=== PATIENT | male | born 1965 | race Caucasian/White ===

== ENCOUNTER 2016-11-04 15:13 | Emergency (ER) | payer SELFPAY ==
[~2016-11-04] VITALS: Ht 188 cm; Wt 86.2 kg
[2016-11-04 15:33] VITALS: BP 138/73
== END 2016-11-04 16:03 | disposition home or self-care (01) ==
LOC: ER 15:18
DX: S80.862A Insect bite (nonvenomous), left lower leg, initial encounter (principal); L02.416 Cutaneous abscess of left lower limb; F41.9 Anxiety disorder, unspecified; W57.XXXA Bitten or stung by nonvenomous insect and other nonvenomous arthropods, initial encounter; Y92.89 Other specified places as the place of occurrence of the external cause; Y93.89 Activity, other specified; Y99.8 Other external cause status
CPT/HCPCS: 99283; A4606; Z7610

== ENCOUNTER 2020-07-17 10:34 | Emergency (ER) | payer OTHER ==
[~2020-07-17] VITALS: Ht 188 cm; Wt 90.7 kg
[2020-07-17] MEDS ORDERED: IV NS 0.9% 1,000 ML BAG IV ONE (11:00)
[2020-07-17 11:11] LABS: BASOPHILS % (AUTO) 0.5 % (0.0-2.0); EOSINOPHILS % (AUTO) 0.4 % (0.0-6.0); HEMATOCRIT 45 % (39-51); HEMOGLOBIN 15.4 g/dL (13.5-17.5); LYMPHOCYTES # (AUTO) 0.8 /CMM (0.8-4.8); LYMPHOCYTES % (AUTO) 9.6 % (20.0-44.0); MEAN CORPUSCULAR HGB CONC 35 g/dl (31.0-36.0); MEAN CORPUSCULAR VOLUME 87 fL (80-96); MONOCYTES # (AUTO) 0.5 /CMM (0.1-1.30); MONOCYTES % (AUTO) 5.9 % (2.0-12.0); NEUTROPHILS # (AUTO) 7.2 /CMM (1.8-8.9); NEUTROPHILS % (AUTO) 83.6 % (43.0-81.0); PLATELET COUNT (AUTO) 284 /CMM (150-450); RED BLOOD CELL COUNT(AUTO) 5.11 MIL/uL (4.5-6.0); WHITE BLOOD COUNT (AUTO) 8.6 K/uL (4.3-11.0)
[2020-07-17 11:19] LABS: CALCIUM, SERUM 8.9 mg/dL (8.5-10.1); POTASSIUM 3.9 mmol/L (3.5-5.1)
--- NOTE | 2020-07-17 11:24 | NUR ---
BIBS FROM HOME. A/O X4. NO SOB OR ANY S/S OF RESPIRATORY DISTRESS. COMPLAINING OF FATIGUE AND RAPID HEART RATE BUT NO CHEST PAIN. AMBULATORY. PLACED ON MONITOR, NOTED HR OF [address] MD AT BEDSIDE FOR EVAL, ORDERS MADE AND CARRIED OUT. LABS DRAWN. STARTED IV ON R FOREARM #20. EKG DONE. BROUGHT TO CT. WILL CONTINUE TO MONITOR THE PT.
[2020-07-17 11:34] LABS: ALBUMIN 3.7 g/dL (3.4-5.0); BILIRUBIN,DIRECT 0.1 mg/dL (0.0-0.2); BILIRUBIN,TOTAL 0.3 mg/dL (0.2-1.0); TOTAL PROTEIN, SERUM 7.4 g/dL (6.4-8.2)
[2020-07-17] MEDS ORDERED: AZIT250T PO (12:23)
--- NOTE | 2020-07-17 12:31 | NUR ---
Patient discharged to home in stable condition. Written and verbal after care instructions given. Patient verbalizes understanding of instruction.IV removed. Catheter intact and site benign. Pressure and 4x4 applied to site. No bleeding noted. Pt ambulatory with a steady gait
[2020-07-17 12:32] VITALS: BP 114/75
== END 2020-07-17 12:32 | disposition home or self-care (01) ==
LOC: ER 10:34
DX: J32.9 Chronic sinusitis, unspecified (principal); Z20.822 Contact with and (suspected) exposure to COVID-19; R73.9 Hyperglycemia, unspecified; R94.31 Abnormal electrocardiogram [ECG] [EKG]; F41.9 Anxiety disorder, unspecified; Z82.3 Family history of stroke
CPT/HCPCS: 36415; 70450; 71045; 80048; 80076; 85025; 87426; 87804; 93005; 96360; 99285; C9803

== ENCOUNTER 2024-06-23 20:25 | Emergency (ER) | payer SELFPAY ==
[~2024-06-23 20:25] MED LIST: AZIT250T PO
== END 2024-06-23 22:52 | disposition home or self-care (01) ==
LOC: ER 20:37
DX: L08.89 Other specified local infections of the skin and subcutaneous tissue (principal); Z53.21 Procedure and treatment not carried out due to patient leaving prior to being seen by health care provider